=== PATIENT | female | born 1950 | race Caucasian/White ===

== ENCOUNTER 2016-12-15 18:33 | Outpatient (CLI) | payer OTHER | END 2016-12-15 18:34 | disposition critical access hospital (66) | DX: R51 Headache (principal); V47.5XXA Car driver injured in collision with fixed or stationary object in traffic accident, initial encounter; Y93.C2 Activity, hand held interactive electronic device | CPT/HCPCS: A0425; A0427 ==

== ENCOUNTER 2016-12-15 19:03 | Emergency (ER) | payer OTHER ==
[2016-12-15] MEDS ORDERED: SODIUM CHLORIDE 0.9% 1,000 ML IV ONE (19:12)
[2016-12-15] MEDS ORDERED: ONDANSETRON 4 MG/2 ML VIAL IVP STA ×2 (19:24→21:28)
[2016-12-15] MEDS ORDERED: ONDANSETRON 4 MG/2 ML VIAL ONE ×2 (19:24→21:30)
[2016-12-15] MEDS ORDERED: IOPAMIDOL-300 100 ML VIAL IVP ONE (20:03)
[2016-12-15] MEDS ORDERED: HYDROmorphone 1 MG/ML SYRINGE IVP STA (20:56)
[2016-12-15] MEDS ORDERED: HYDROmorphone 1 MG/ML SYRINGE ONE (21:12)
[2016-12-15] MEDS ORDERED: MECLIZINE 12.5 MG TABLET PO STA (22:32)
[2016-12-15] MEDS ORDERED: MECLIZINE 12.5 MG TABLET PO ONE (22:33)
== END 2016-12-16 00:34 | disposition home or self-care (01) ==
DX: S01.01XA Laceration without foreign body of scalp, initial encounter (principal); S09.90XA Unspecified injury of head, initial encounter; S39.92XA Unspecified injury of lower back, initial encounter; M54.2 Cervicalgia; V48.0XXA Car driver injured in noncollision transport accident in nontraffic accident, initial encounter; Y93.C2 Activity, hand held interactive electronic device; R03.0 Elevated blood-pressure reading, without diagnosis of hypertension; G40.909 Epilepsy, unspecified, not intractable, without status epilepticus
CPT/HCPCS: 12001; 36415; 70450; 71260; 72125; 74177; 80053; 80320; 83690; 85025; 85610; 86850; 86900; 86901; 96374; 96375; 96376; 99284; A9270; J1170; Q9967

== ENCOUNTER 2017-11-24 00:39 | Emergency (ER) | payer OTHER ==
[2017-11-24] MEDS ORDERED: IBUPROFEN 400 MG TABLET PO STA (00:57)
[2017-11-24] MEDS ORDERED: predniSONE 20 MG TABLET PO STA (00:57)
[2017-11-24] MEDS ORDERED: FAMOTIDINE 20 MG TABLET PO STA (00:57)
--- NOTE | 2017-11-24 00:58 | ED Physician Documentation ---
History of Present Illness - Stated complaint Stated Complaint: REACTION TO ANT SPRAY - History obtained from History obtained from: Patient - History of Present Illness Timing: How many days ago (3) - Additonal information Additional information: Patient is a 66 year old female with no sigificant past medical history who is presenting to the emergency department for exposure to an insecticide. Patient states that her house was sprayed 4 days ago. Patient states that she tried to air out the house but today when she opened some drawers and a closet she was exposed again. patient states that she had some headaches, wheezing and partial tongue numbness. Patient states that she did take benadryl that did help with some of the symptoms. Review of Systems Constitutional: denies: Fever, Chills Eyes: denies: Discharge, Irritation Ears: denies: Ear pain, Drainage/discharge Nose: denies: Rhinorrhea / runny nose, Congestion Throat: denies: Sore throat Cardiac: denies: Chest pain / pressure Respiratory: reports: Cough, Wheezing GI: denies: Nausea : reports: Reviewed and negative Skin: denies: Rash, Lesions Neurologic: reports: Headache. denies: Head injury, LOC Immunocompromised: denies: Immunocompromised PD PAST MEDICAL HISTORY - Past Medical History Cardiovascular: None Respiratory: None Neuro: Seizure disorder Endocrine/Autoimmune: None GI: GI bleed PASTRYCOOK: None : Other HEENT: None Psych: Depression Musculoskeletal: None Derm: Eczema - Past Surgical History Past Surgical History: Yes Neuro: Craniotomy, Other - Present Medications Home Medications: Ambulatory Orders Medication Instructions Recorded Confirmed Levetiracetam [Keppra] 350 mg ORAL DAILY 08/25/14 12/15/16 lamoTRIgine [Lamictal] 200 mg ORAL BID 08/25/14 12/15/16 Multivitamin [Multivitamins] 1 each PO DAILY 03/02/16 12/15/16 clonazePAM [Clonazepam] 0.5 mg PO BID 03/02/16 12/15/16 predniSONE [Prednisone] 40 mg PO DAILY 5 Days tablet 11/24/17 - Allergies Allergies/Adverse Reactions: Allergies Allergy/AdvReac Type Severity Reaction Status Date / Time latex Allergy Rash Verified 11/24/17 01:06 Penicillins Allergy Edema Verified 11/24/17 01:06 Sulfa (Sulfonamide Allergy Rash Verified 11/24/17 01:06 Antibiotics) - Social History Does the pt smoke?: No Smoking Status: Never smoker Does the pt drink ETOH?: No Does the pt have substance abuse?: No - Immunizations Immunizations are current?: Yes PD ED PE NORMAL - Vitals Vital signs reviewed: Yes - General General: Alert and oriented X 3, No acute distress, Well developed/nourished - HEENT HEENT: Atraumatic, PERRL, Moist mucous membranes, Pharynx benign, Dentition benign, Other (no soft palate swelling) - Cardiac Cardiac: RRR, No murmur - Respiratory Respiratory: No respiratory distress, Clear bilaterally - Abdomen Abdomen: Soft, Non tender, Non distended - Derm Derm: Normal color, Warm and dry, No rash - Extremities Extremities: No deformity, No edema - Neuro Neuro: Alert and oriented X 3, No motor deficit, No sensory deficit, Normal speech - Psych Psych: Normal mood Results - Vitals Vitals: Vital Signs - 24 hr 11/24/17 11/24/17 00:42 01:33 Temperature 36.4 C L Heart Rate 64 59 L Respiratory 21 16 Rate Blood Pressure 124/80 109/74 O2 Saturation 100 98 Oxygen O2 Source Room air PD MEDICAL DECISION MAKING - ED course Complexity details: reviewed old records, reviewed results, re-evaluated patient , considered differential, d/w patient ED course: Patient was seen and examined at bedside. patient was in no distress. patient was treated with pepcid and steroids and a bendaryl to go home with. Patient required no further work up and was stable for discharge with outpatient follow up. Departure - Departure Disposition: 01 Home, Self Care Clinical Impression: Exposure to toxic chemical Condition: Good Instructions: First Aid Chemical Exp Follow-Up: Dennis Hankins NP [Primary Care Provider] - As Needed Prescriptions: predniSONE [Prednisone] 40 mg PO DAILY 5 Days tablet Comments: there is no sign of systemic reaction to the insect spray. You are doing all of the right things. you should air out the apartment and avoid future exposure. You can take benadryl as needed for itching or rash. You can take steroids for the next 4 days. You should follow up with your doctor if your symptoms persist. You may return to the emergency department at any time as necessary for new, worsening or uncontrollable symptoms. Discharge Date/Time: 11/24/17 01:56
[2017-11-24] MEDS ORDERED: diphenhydrAMINE 25 MG CAPSULE PO STA (01:02)
[2017-11-24 01:34] VITALS: BP 109/74
== END 2017-11-24 01:56 | disposition home or self-care (01) ==
LOC: ED 00:39
DX: Z77.098 Contact with and (suspected) exposure to other hazardous, chiefly nonmedicinal, chemicals (principal); G40.909 Epilepsy, unspecified, not intractable, without status epilepticus
CPT/HCPCS: 99283; A9270; J7512

== ENCOUNTER 2023-09-01 16:53 | Outpatient (CLI) | payer OTHER | END 2023-09-01 23:59 | disposition critical access hospital (66) | LOC: EMS 16:53 | DX: M54.50 Low back pain, unspecified (principal); M54.6 Pain in thoracic spine; W11.XXXA Fall on and from ladder, initial encounter; Y92.019 Unspecified place in single-family (private) house as the place of occurrence of the external cause | CPT/HCPCS: A0425; A0429 ==

== ENCOUNTER 2023-09-01 17:23 | Emergency (ER) | payer OTHER ==
[2023-09-01] MEDS ORDERED: MORPHINE 10 MG/ML VIAL IM STA (17:39)
--- NOTE | 2023-09-01 17:41 | ED Physician Documentation ---
History of Present Illness - Stated complaint Stated Complaint: FALL - Chief complaint Chief Complaint: Trauma Ch/Bk - History obtained from History obtained from: Patient, EMS - History of Present Illness Timing: Today Pain level max: 5 Pain level now: 5 - Additonal information Additional information: Patient is a 72 old female who was on a ladder today, approximately 2 feet off the ground when she slipped and fell and landed on her buttock and lower back. She is unsure if she struck her head or not. No neck pain. No numbness or tingling. She states she has pain in her mid and low back. No loss of bowel or bladder control. Not on blood thinners. Worse with movement, better with rest. Review of Systems Constitutional: denies: Fever, Chills GI: denies: Vomiting, Diarrhea : denies: Unable to Void, Incontinent Skin: denies: Rash Neurologic: denies: Focal weakness, Numbness PD PAST MEDICAL HISTORY - Past Medical History Cardiovascular: None Respiratory: None Endocrine/Autoimmune: None GI: GI bleed BAKER PAINT: None : Other HEENT: None Psych: Depression Musculoskeletal: None Derm: Eczema - Past Surgical History Past Surgical History: Yes Neuro: Craniotomy, Other - Present Medications Home Medications: Ambulatory Orders Medication Instructions Recorded Confirmed Levetiracetam [Keppra] 350 mg ORAL DAILY 08/25/14 12/15/16 lamoTRIgine [Lamictal] 200 mg ORAL BID 08/25/14 12/15/16 Multivitamin [Multivitamins] 1 each PO DAILY 03/02/16 12/15/16 clonazePAM [Clonazepam] 0.5 mg PO BID 03/02/16 12/15/16 Calcitonin [Fortical] 1 sprays ANITA DAILY 14 Days #1 each 09/01/23 Ondansetron Odt [Zofran] 4 mg TL Q6H PRN #10 tablet 09/01/23 oxyCODONE [Roxicodone] 5 mg PO Q6H PRN #20 tablet MDD 6 09/01/23 - Allergies Allergies/Adverse Reactions: Allergies Allergy/AdvReac Type Severity Reaction Status Date / Time latex Allergy Rash Verified 11/24/17 01:06 Penicillins Allergy Edema Verified 11/24/17 01:06 Sulfa (Sulfonamide Allergy Rash Verified 11/24/17 01:06 Antibiotics) - Social History Does the pt smoke?: No Smoking Status: Never smoker Does the pt drink ETOH?: No Does the pt have substance abuse?: No - Immunizations Immunizations are current?: Yes - POLST Patient has POLST: No PD ED PE NORMAL - Vitals Vital signs reviewed: Yes - General General: Alert and oriented X 3, No acute distress - HEENT HEENT: Atraumatic, PERRL, EOMI, Ears normal, Moist mucous membranes - Neck Neck: Supple, no meningeal sign, No bony TTP (No midline tenderness to palpation or percussion. No step-off or deformity. Full range of motion of the neck without pain.) - Cardiac Cardiac: RRR, Strong equal pulses - Respiratory Respiratory: No respiratory distress, Clear bilaterally - Abdomen Abdomen: Soft, Non tender, Non distended - Back Back: Other (No thoracic spine tenderness. There is tenderness over the upper lumbar spine. No step-off or deformity. stable pelvis. no pelvic tenderness) - Derm Derm: Warm and dry, No rash - Extremities Extremities: No deformity, No tenderness to palpate, Normal ROM s pain, No edema, No calf tenderness / cord - Neuro Neuro: Alert and oriented X 3, clerical grader 2-12 intact, No motor deficit, No sensory deficit, Normal speech Eye Opening: Spontaneous Motor: Obeys Commands Verbal: Oriented GCS Score: 15 - Psych Psych: Normal mood, Normal affect Results - Vitals Vitals: Vital Signs - 24 hr 09/01/23 09/01/23 09/01/23 17:28 17:31 19:26 Temperature 36 C L Heart Rate 64 55 L Respiratory 17 18 14 Rate Blood Pressure 125/64 112/62 O2 Saturation 96 93 09/01/23 20:50 Temperature Heart Rate 61 Respiratory 15 Rate Blood Pressure 109/78 O2 Saturation 98 Oxygen O2 Source Room air - Rads (name of study) Head CT Relevant Findings:: Final report received, See rad report Lumbar spine CT Relevant Findings:: Final report received, See rad report PD Medical Decision Making - ED course Complexity details: reviewed results, re-evaluated patient, considered differential, d/w patient, d/w family ED course: 72-year-old female was on a ladder today, fell out approximately 2 feet off the ground landed onto her buttock and back. No acute findings on head CT. No neck pain. No thoracic back pain. CT lumbar spine does show a mild L1 compression fracture with no retropulsion. Pain well-controlled in the emergency department. No focal neurological deficits. Discussed the results of her scans with the patient and her daughter. Will prescribe pain medication for home and have her follow-up with her PCP. Will place her on calcitonin as well. No indication for TLSO at this time. Patient is ambulating without difficulty in the emergency department. Not using any assistive devices. Not limping. Patient counseled regarding signs and symptoms for which I believe and urgent re-evaluation would be necessary. Patient with good understanding of and agreement to plan and is comfortable going home at this time This document was made in part using voice recognition software. While efforts are made to proofread this document, sound alike and grammatical errors may occur. Departure - Departure Disposition: 01 Home, Self Care Clinical Impression: Compression fracture of L1 lumbar vertebra Qualifiers: Encounter type: initial encounter Qualified Code(s): S32.010A - Wedge compression fracture of first lumbar vertebra, initial encounter for closed fracture Condition: Good Instructions: ED Fx Comp Vertebral Follow-Up: KVNG TENORIO MD [Primary Care Provider] - Within 1 week Prescriptions: Calcitonin [Fortical] 1 sprays ANITA DAILY 14 Days #1 each oxyCODONE [Roxicodone] 5 mg PO Q6H PRN #20 tablet MDD 6 PRN Reason: pain Ondansetron Odt [Zofran] 4 mg TL Q6H PRN #10 tablet PRN Reason: Nausea / Vomiting Comments: Your prescriptions were sent to [facility] in [place]. You have a mild L1 compression fracture on your CT scan today. Please follow-up with your doctor for further care. Please return if you worsen. We will place you on intranasal calcitonin for 2 weeks, this will help healing and to help with pain control as you heal. You can use the oxycodone as needed for breakthrough pain. You can also use Motrin or Tylenol as needed for pain at home. I am prescribing a short course of narcotic pain medication for you. These are potentially dangerous and addictive medications that should be used carefully. These medications may constipate you. Take an eixw-mar-ydrylym stool softener (docusate) twice daily with plenty of water while taking these medications. If you go 24 hours without a bowel movement, take zmos-ioa-ptuwlax miralax, per package instructions. Do not drink or drive while taking these medications. If you received narcotic or sedating medications while in the emergency department, do not drive for 24 hours. Store this medication in a safe, secure place and out of reach of children. It is a violation of federal law to give or sell this medication to another p erson or to use in a manner other than prescribed. The ED will not refill narcotic prescriptions, including prescriptions lost or stolen. To dispose of unwanted medications: 1. [facility] [address] [facility] in [place] has a medication drop box. They accept prescription medications (in pill form) Wednesday through Wednesday 9:00 a.m. to 5:00 p.m. 2. The [facility] [employer] accepts prescription medications (in pill form only) for disposal year round. Call for more information. 3. Contact the [facility] for the next [employer] sponsored prescription drug collection event. , [phone], or [phone]; COMPARISON: CT abdomen pelvis 12/15/2016. FINDINGS: Image quality: Excellent. Bones: There is normal bony alignment. Mild L1 compression fracture, (6/38). No suspicious lytic or blastic bony lesions. DDD most pronounced at L4-L5. Central spinal caliber is of normal overall caliber. No pars defects. Soft tissues: No retroperitoneal masses or hematomas. Visualized aorta is normal in caliber. Diverticulosis. Splenic calcification. Anteverted uterus. IMPRESSION: Mild L1 compression fracture which is new in the interval compared to 2017. Forms: PCP List Discharge Date/Time: 09/01/23 21:10
--- NOTE | 2023-09-01 19:42 | CT Report ---
PROCEDURE: HEAD WO INDICATIONS: fall, head injury TECHNIQUE: Noncontrast 4.5 mm thick angled axial sections acquired from the foramen magnum to the vertex. For r adiation dose reduction, the following was used: automated exposure control, adjustment of mA and/or kV according to patient size. COMPARISON: Head CT 12/15/2016. FINDINGS: Image quality: Excellent. CSF spaces: Basal cisterns are patent. No extra-axial fluid collections. Ventricles are normal in size and shape. Brain: No midline shift. No intracranial masses or hemorrhage. Small area of inseparable age in the left cerebral hemisphere appears similar to 2017. No area of hypodensity in a vascular distribution to suggest acute infarction. There is periventricular hypodensity consistent with chronic microvascul ar ischemic disease. Age-related parenchymal loss. Skull and face: Prior left craniectomy. Calvarium and visualized facial bones are intact, without leung spicious lesions. Sinuses: Visualized sinuses and mastoids are clear. IMPRESSION: No acute intracranial hemorrhage. Similar mild encephalomalacia in the left cerebral hemisphere. Prior left craniectomy. Reviewed by: Davin Gabriel MD on 09/01/2023 7:41 PM PST Approved by: Davin Gabriel MD on 09/01/2023 7:41 PM PST Station ID: [id number]
--- NOTE | 2023-09-01 19:49 | CT Report ---
PROCEDURE: LUMBAR SPINE WO INDICATIONS: FALL, PAIN TECHNIQUE: Noncontrast 3 mm thick sections acquired from the T12 level to the sacrum. Sagittal and coronal refo rmats were constructed. For radiation dose reduction, the following was used: automated exposure co ntrol, adjustment of mA and/or kV according to patient size. COMPARISON: CT abdomen pelvis 12/15/2016. FINDINGS: Image quality: Excellent. Bones: There is normal bony alignment. Mild L1 compression fracture, (6/38). No suspicious lytic or blastic bony lesions. DDD most pronounced at L4-L5. Central spinal caliber is of normal overall billy wolfgang. No pars defects. Soft tissues: No retroperitoneal masses or hematomas. Visualized aorta is normal in caliber. Diver ticulosis. Splenic calcification. Anteverted uterus. IMPRESSION: Mild L1 compression fracture which is new in the interval compared to 2017. Reviewed by: Davin Gabriel MD on 09/01/2023 7:48 PM PST Approved by: Davin Gabriel MD on 09/01/2023 7:48 PM PST Station ID: [id number]
[2023-09-01] MEDS ORDERED: oxyCODONE/ACET 5/325 Prepack 4 PO STA (20:23)
[2023-09-01 21:16] VITALS: BP 109/78; O2SAT 98
== END 2023-09-01 21:10 | disposition home or self-care (01) ==
LOC: EDUNIT# → ED 17:23
DX: S32.010A Wedge compression fracture of first lumbar vertebra, initial encounter for closed fracture (principal); W11.XXXA Fall on and from ladder, initial encounter; Z79.899 Other long term (current) drug therapy
CPT/HCPCS: 96374; 99283

== ENCOUNTER 2023-12-06 07:00 | Outpatient (CLI) | payer OTHER ==
[2023-12-06 15:06] LABS: BILIRUBIN,URINE NEGATIVE (NEGATIVE); GLUCOSE, URINE (UA) NEGATIVE (NEGATIVE); KETONES,URINE (UA) NEGATIVE (NEGATIVE); LEUKOCYTE ESTERASE, URINE LARGE (NEGATIVE); NITRITE,URINE POSITIVE (NEGATIVE); OCCULT BLOOD,URINE TRACE-INTA (NEGATIVE); PROTEIN,URINE NEGATIVE (NEGATIVE); UROBILINOGEN,URINE 0.2 (NORMAL) E.U./dL (NORMAL)
[2023-12-06 15:29] LABS: CLARITY,URINE CLOUDY (CLEAR)
[2023-12-06 15:30] LABS: BACTERIA,URINE Rare /HPF (None Seen); RBC,URINE 0-5 /HPF (0-5); SQUAMOUS EPITHELIAL CELL,UR RARE Squamous (<= Few); WBC,URINE >25 /HPF (0-5)
== END 2023-12-06 23:59 | disposition home or self-care (01) ==
LOC: LAB.S 07:00 → MERGE 07:00 → LAB.S 23:59
PROVIDERS: ATTEND Emergency Medicine
DX: R30.0 Dysuria (principal)
CPT/HCPCS: 81001; 87086; 87181